=== PATIENT | male | born 1970 | race Caucasian/White ===

== ENCOUNTER 2018-11-04 20:13 | Emergency (ER) | payer OTHER ==
[~2018-11-04] VITALS: Ht 177.8 cm; Wt 127.0 kg
[2018-11-04 20:21] VITALS: Ht 177.8 cm; Wt 127.0 kg
[2018-11-04 20:54] VITALS: BP 127/81
== END 2018-11-04 20:50 | disposition other institution (70) ==
LOC: ED 20:13
DX: Z02.89 Encounter for other administrative examinations (principal)

== ENCOUNTER 2019-10-12 16:08 | Inpatient (IN) | payer OTHER ==
[~2019-10-12] VITALS: Ht 177.8 cm; Wt 129.2 kg
[2019-10-12 16:11] VITALS: Ht 177.8 cm; Wt 129.2 kg
[2019-10-12] MEDS ORDERED: GLUMETZA500 MG PO (17:02)
[2019-10-12] MEDS ORDERED: WARFARIN SODIUM4 M1 PO (17:02)
[2019-10-12] MEDS ORDERED: FENOFIBRATE150 MG PO (17:03)
[2019-10-12] MEDS ORDERED: ATORVASTATIN CA20 M1 PO (17:03)
[2019-10-12] MEDS ORDERED: [UNRECOGNIZED DRUG - OTHER] PO (17:04)
[2019-10-12 17:05] LABS: BASOPHIL % 1.5 % (0-2); PLATELET COUNT 277 x10^3mcL (130-400); RED CELL DISTRIBUTION WIDTH 13.9 % (11.5-14.5)
[2019-10-12 17:11] LABS: CALCIUM 8.4 mg/dL (8.5-10.1); CARBON DIOXIDE 25.2 mmol/L (21-32); CHLORIDE SERUM 106 mmol/L (98-107); CREATININE SERUM 1.1 mg/dL (0.7-1.3); GFR1 > 60 mL/min; GLUCOSE SERUM 141 mg/dL (74-106); SODIUM SERUM 140 mmol/L (136-145)
[2019-10-12 17:17] LABS: ALKALINE PHOSPHATASE 98 U/L (46-116); ALT/SGPT 24 U/L (16-63); AST/SGOT 21 U/L (15-37); BILIRUBIN TOTAL 0.3 mg/dL (0.20-1.00); TOTAL PROTEIN, SERUM 7.6 g/dL (6.4-8.2)
[2019-10-12 20:28] VITALS: BP 106/62
[2019-10-12 21:51] LABS: CHOLESTEROL/HDL RATIO 3.3; T3 TOTAL 1.12 ng/mL
[2019-10-12 21:58] LABS: FREE T4 0.98 ng/dL (0.76-1.46); FREE THYROXINE INDEX 2.7 ug/dL (1.4-4.5); T4(THYROXINE) 7.4 ug/dL (4.7-13.3)
[2019-10-12 23:08] VITALS: BP 101/54
[2019-10-13 00:18] LABS: BASOPHIL % 0.3 % (0-2); PLATELET COUNT 259 x10^3mcL (130-400); RED CELL DISTRIBUTION WIDTH 14.5 % (11.5-14.5)
[2019-10-13 03:02] VITALS: BP 124/79
[2019-10-13 03:59] LABS: microscopic required? NO
[2019-10-13 04:08] LABS: UA SPECIFIC GRAVITY >=1.030 (1.005-1.035); urine erythrocyte NEGATIVE (NEGATIVE)
[2019-10-13 04:26] LABS: AMPHETAMINE QUAL UR POSITIVE (See below)
[2019-10-13 06:01] LABS: BASOPHIL % 0.6 % (0-2); PLATELET COUNT 250 x10^3mcL (130-400); RED CELL DISTRIBUTION WIDTH 14.5 % (11.5-14.5)
[2019-10-13 06:05] LABS: CALCIUM 7.9 mg/dL (8.5-10.1); CARBON DIOXIDE 25.1 mmol/L (21-32); CHLORIDE SERUM 107 mmol/L (98-107); CREATININE SERUM 0.9 mg/dL (0.7-1.3); GFR1 > 60 mL/min; GLUCOSE SERUM 107 mg/dL (74-106); MAGNESIUM 2.1 mg/dL (1.8-2.4); PHOSPHOROUS 3.8 mg/dL (2.5-4.9); POTASSIUM SERUM 3.7 mmol/L (3.5-5.1); SODIUM SERUM 140 mmol/L (136-145)
[2019-10-13 07:47] VITALS: BP 88/47
[2019-10-13 12:00] VITALS: BP 90/53
[2019-10-13 16:01] VITALS: BP 99/61
[2019-10-13 21:16] VITALS: BP 91/60
[2019-10-14 04:50] VITALS: BP 96/64
[2019-10-14 07:05] LABS: BASOPHIL % 0.3 % (0-2); PLATELET COUNT 227 x10^3mcL (130-400); RED CELL DISTRIBUTION WIDTH 14.1 % (11.5-14.5)
[2019-10-14 07:22] LABS: CALCIUM 7.5 mg/dL (8.5-10.1); CARBON DIOXIDE 29.3 mmol/L (21-32); CHLORIDE SERUM 106 mmol/L (98-107); CREATININE SERUM 0.9 mg/dL (0.7-1.3); GFR1 > 60 mL/min; GLUCOSE SERUM 127 mg/dL (74-106); PHOSPHOROUS 3.4 mg/dL (2.5-4.9); POTASSIUM SERUM 3.5 mmol/L (3.5-5.1); SODIUM SERUM 139 mmol/L (136-145)
[2019-10-14 07:40] VITALS: BP 100/66
[2019-10-14 11:13] VITALS: BP 120/94
== END 2019-10-14 12:27 | disposition short-term general hospital (02) | DRG 378 ==
LOC: ED 16:08 → IC 19:50 → DU 19:50 → IC 20:34 → DU 10-13 16:33
PROVIDERS: Emergency Medicine; Internal Medicine Gastroenterology; ADMIT Family Medicine; ATTEND Family Medicine
PROC: 30233N1 Transfusion of Nonautologous Red Blood Cells into Peripheral Vein, Percutaneous Approach (ICD-10-PCS; 2019-10-12)
PROC: 0DBF8ZZ Excision of Right Large Intestine, Via Natural or Artificial Opening Endoscopic (ICD-10-PCS; principal; 2019-10-13 08:00)
PROC: 0DBL8ZZ Excision of Transverse Colon, Via Natural or Artificial Opening Endoscopic (ICD-10-PCS; 2019-10-13 08:00)
PROC: 0DJ08ZZ Inspection of Upper Intestinal Tract, Via Natural or Artificial Opening Endoscopic (ICD-10-PCS; 2019-10-13 08:00)
DX: K92.2 Gastrointestinal hemorrhage, unspecified (principal); G93.40 Encephalopathy, unspecified; D62 Acute posthemorrhagic anemia; E44.1 Mild protein-calorie malnutrition; E72.20 Disorder of urea cycle metabolism, unspecified; I10 Essential (primary) hypertension; E11.9 Type 2 diabetes mellitus without complications; Z89.511 Acquired absence of right leg below knee; E66.9 Obesity, unspecified; Z71.3 Dietary counseling and surveillance; I95.9 Hypotension, unspecified; E78.5 Hyperlipidemia, unspecified; Z79.82 Long term (current) use of aspirin; Z79.01 Long term (current) use of anticoagulants; Z79.84 Long term (current) use of oral hypoglycemic drugs; E83.51 Hypocalcemia; Z68.39 Body mass index [BMI] 39.0-39.9, adult
CPT/HCPCS: 43235; 45378; 82962; 83880; 84439; C9113; C9132; G0378; J0171; J1200; J1610; J2250; J2310; J3010; J3430; J3490; J7030; J7050; P9016; Q0092; Q9967